=== PATIENT | female | born 2005 | race Caucasian/White ===

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

== ENCOUNTER 2025-01-23 14:18 | Outpatient (CLI) | payer OTHER, SELFPAY ==
--- NOTE | 2025-01-23 14:20 | CA_ITS ---
APPROVED REPORT EXAM: Comprehensive 2D, Doppler, and color-flow Echocardiogram Wagon Person: Sonia Zabala RT(R) Ht: 5 ft 6 in Wt: 184lbs BSA: 1.93 BP: 142/90 mmHg Indications: maternal hypertension, preeclampsia, 6 week post 2D Dimensions LVEF (Thomas's) 40.20 % F: 54 - 74 LV Volume 112.30 mL F: 46 - 106 LV Volume Index 58.2 mL/m2 F: 29 - 61 EF AP4 42.70 % EF AP2 39.5 % EF BP 40.2 % GL Strain -14.8 % M-Mode Dimensions RVDd 2.44 cm (0.9-2.6) LA Diam 2.76 cm (1.9-4.0) LVDd 4.58 cm (3.5-5.7) LVDs 3.41 cm (3.5-5.7) IVSd 0.60 cm (0.6-1.1) PWd 0.70 cm (0.6-1.1) EF (Teich) 50.40% FS 25.50% EDV (Teich) 96.30 mL ESV (Teich) 47.80 mL LV Diastology E Decel Time 187 (160-240 msec) E/A Ratio 1.5 Mitral Valve MV E Max Baldomero. 92.0 (40-130 cm/s) MV A Velocity 60.0 (40-130 cm/s) E/A Ratio 1.53 MV PHT 55.0 ms Left Ventricle The left ventricle is normal size. Left ventricular systolic function is normal. The left ventricular ejection fraction is within the normal range. There is normal left ventricular wall thickness. There is normal LV segmental wall motion. The left ventricular diastolic function is normal. LVEF is 55% Right Ventricle The right ventricle is normal size. The right ventricular systolic function is normal. Atria The left atrium size is normal. The right atrium size is normal. There is no color Doppler evidence of interatrial shunt. Aortic Valve The aortic valve opens well. There is no hemodynamically significant aortic valvular stenosis. No aortic regurgitation is present. Mitral Valve The mitral valve is normal in structure. No evidence of mitral valve stenosis. Trace mitral regurgitation is present. Tricuspid Valve The tricuspid valve leaflets are thin and pliable. Trace tricuspid regurgitation. There is insufficient TR jet to estimate RVSP. Pulmonic Valve The pulmonary valve is grossly normal in structure. Trace pulmonic valve regurgitation is present. Great Vessels The aortic root is normal in size. IVC is normal in size and collapses >50% with inspiration. Pericardium There is no pericardial effusion. Other Information Study Quality: Fair Conclusion Normal biventricular systolic function. No significant valvular stenosis or regurgitation. Electronically signed by : Malissa Gamez MD 01/23/2025 22:44:28
== END 2025-01-23 23:59 | disposition home or self-care (01) ==
LOC: RT 14:19
PROVIDERS: PCP Nurse Practitioner Family; Visit Provider Nurse Practitioner Family
DX: O16.5 Unspecified maternal hypertension, complicating the puerperium (principal)
CPT/HCPCS: 93306